=== PATIENT | female | born 1995 | race Two or more races ===

== ENCOUNTER 2018-01-14 14:53 | Emergency (ER) | payer SELFPAY ==
[~2018-01-14] VITALS: Ht 160 cm; Wt 77.1 kg
[2018-01-14] MEDS ORDERED: NKM (15:21)
[2018-01-14 15:43] VITALS: BP 138/87
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
--- NOTE | 2018-01-14 17:29 | Diagnostic Imaging Report ---
Indication: Reason For Exam: PAIN Technique: Continuous helical CT scanning of the head was performed without intravenous contrast material. Axial and coronal 5 mm sections were generated. Radiation dose was minimized using automated exposure control Dose: Total Dose Length Product - DLP 1425.[address] Dose Index - CTDIvol(s) 70.38 mGy. Comparison: None Findings: The ventricular system is normal in size and configuration. There is no shift of midline structures. No abnormal extra-axial fluid collections are noted. There is no evidence of intracerebral bleeding. No other abnormal high or low density areas are noted within the brain. There is no depressed calvarial fracture. Mastoid air cells and paranasal sinuses are clear. IMPRESSION: No evidence of acute intracranial hemorrhage, mass effect or cortical edema. No skull fracture. The CT scanner at [facility] is accredited by the [employer] and the scans are performed using protocols designed to limit radiation exposure to as low as reasonably achievable to attain images of sufficient resolution adequate for diagnostic evaluation.
[2018-01-14] MEDS ORDERED: TRAMADOL HCL50 MG ORAL (17:49)
[2018-01-14 18:02] VITALS: BP 138/87
== END 2018-01-14 18:03 | disposition home or self-care (01) ==
LOC: EMR 17:13
DX: S00.31XA Abrasion of nose, initial encounter (principal); V43.62XA Car passenger injured in collision with other type car in traffic accident, initial encounter; Y92.410 Unspecified street and highway as the place of occurrence of the external cause; M54.2 Cervicalgia
CPT/HCPCS: 70450; 81025; 99284; J8540